=== PATIENT | female | born 1935 ===

== ENCOUNTER 2020-11-29 18:00 | Inpatient (IN) | payer MEDICARE ==
[~2020-11-29] VITALS: Ht 162.6 cm; Wt 48.1 kg
[2020-11-29] MEDS ORDERED: ESCI10TA PO (18:27)
--- NOTE | 2020-11-29 19:19 | NUR ---
MEDICALLY CLEARED BY ERMD. CALLED UNIQUE BAILON FROM PET TEAM TO EVAL PATIENT.
--- NOTE | 2020-11-29 20:30 | NUR ---
[place] from PET TEAM here to eval patient.
--- NOTE | 2020-11-29 22:28 | NUR ---
Transfered to [facility] via [facility].
[2020-11-29] MEDS ORDERED: MAGNESIUM HYDROXIDE 30 ML LIQUID UDC PO PRN (22:30)
[2020-11-29] MEDS ORDERED: MAG HYDROX/AL HYDROX/SIMETH 30 ML LIQUID UDC PO PRN (22:30)
[2020-11-29] MEDS ORDERED: LORAZEPAM 1 MG TABLET PO PRN (22:30)
[2020-11-29] MEDS ORDERED: ACETAMINOPHEN 325 MG TABLET PO PRN (22:30)
[2020-11-29 22:50] VITALS: BP 159/69
--- NOTE | 2020-11-29 22:55 | NUR ---
GPS ADMISSION NOTE : Patient is a 84 year old female brought into [facility] on a 5150 for DTS, Per the hold, the patient lives in a memory care center and has been expressing thought of SI to the staff. Also feeling hopeless and helpless. Upon face to face evaluation, this patient arrived on a gurney, incontinent of urine and very disoriented. When patient was asked why she was here, the patient responded " I do not have any idea ". Despite this writers multiple attempts to reorient this patient to the environment and unit rules, the patient was not able to retain the information. VS were stable and a Patients Rights handbook along with the Patient Advisement were given to the patient. Patient has no recollection of being SI. Continuing to monitor patient for safety, and to reorient whenever possible.
[2020-11-30] MEDS: TEMAZEPAM 7.5 MG CAPSULE PO PRN (01:20)
--- NOTE | 2020-11-30 06:02 | NUR ---
Patient was put into bed and got up x3 , constant reassurance and reorientation provided. This sign writer hand had patient in the sukhdeep chair, gave her some snack and a sleeping medication. Eventually, the patient fell asleep after put back to bed. The bed alarm is on and activated. Bed is locked and in the lowest position. Total sleep hours are 3.45 at this time. Patient was help to the toilet , but was incontinent. Continues to deny SI, and is confused about the whole situation stating that this is " A strange house."
[2020-11-30 07:30] VITALS: BP 113/53
--- NOTE | 2020-11-30 08:31 | NUR ---
Firearms Report: Environmental Maintenance Worker completed and submitted a [employer] firearms report for 5150 grave disability certification. A copy of report has been placed in patient chart.
--- NOTE | 2020-11-30 09:20 | NUR ---
TG Initial Discharge Plan: Patient andersy resides at [facility] located at [address] [place] [id number] ([phone]). This SW contacted patient's granddaughter Elizabeth ([phone]) and discussed treatment and discharge plan. Elizabeth stated she is the DPOA and pt's son Rodri ([phone]) and will fax this SW documents. Elizabeth stated she would want pt to return back to her memory care unit upon dc. TG will work with the MD and treatment team to coordinate proper discharge.
--- NOTE | 2020-11-30 09:21 | NUR ---
SW Family Contact: This SW contacted patient's granddaughter Elizabeth ([phone]) and discussed treatment and discharge plan. Elizabeth stated she is the DPOA and pt's son Rodri ([phone]) and will fax this SW documents. Elizabeth stated she would want pt to return back to her memory care unit upon dc
--- NOTE | 2020-11-30 09:21 | NUR ---
Treatment Plan: Pt appeared to be very confused and disorganized. Pt refused to sign.
--- NOTE | 2020-11-30 09:23 | NUR ---
[facility]: This SW contacted [facility] ([phone]) and requested to speak to admin to discuss discharge plan. Mansoor telephone operator receptionist stated admin will contact this SW.
--- NOTE | 2020-11-30 12:53 | NUR ---
[facility]: This SW contacted [facility] ([phone]) and spoke with admin Leyda (Cellphone: [phone]) who stated pt is welcomed back upon dc and will want a note stating pt is not SI.
[2020-11-30 15:13] VITALS: BP 105/71
[2020-11-30 15:46] LABS: *BILIRUBIN,URIN 1+ (NEGATIVE); *BLOOD, URINE 3+ (NEGATIVE); *CLARITY,URINE CLOUDY (CLEAR); *COLOR,URINE Brown (YELLOW); *KETONES,URINE 1+ (NEGATIVE); LEUKOCYTE ESTERASE ,URINE TRACE (NEGATIVE); NITRITE, URINE POSITIVE (NEGATIVE); UGLUCOSE TRACE (NEGATIVE)
[2020-11-30 20:31] VITALS: BP 139/80
[2020-11-30] MEDS: MIRTAZAPINE 15 MG TABLET PO SCH (20:47)
--- NOTE | 2020-11-30 22:00 | NUR ---
RECEIVED PATIENT IN THE HALLWAY SITTING IN A CURT CHAIR CLOSE TO THE NURSING STATION, SHE IS NOTED AWAKE, A/O X 1. MOOD IS IRRITABLE, AFFECT IS FLAT, PATIENT NOTED CONFUSED, DISORGANIZED SPEECH, GUARDED, AGGRESSIVE TOWARD STAFF AND SUSPICIOUS WITH DELUSION OF PERSECUTION. UPON INTERVIEW, SHE STATED TO THIS HEATING AND COOLING SYSTEMS ENGINEER, "WHY YOU KEEP ME HERE? ARE YOU GOING TO KILL ME? ARE YOU GIVING ME POISON? WHAT DID A DO TO YOU?" PATIENT REQUIRED MULTIPLE REDIRECTION, REALITY CHECKS AND REASSURANCE SHE IS NOTED FORGETFUL. NOTED RELUCTANT TO TAKE MEDICATION; HOWEVER, AFTER MULTIPLE REASSURANCES, SHE TOOK REMERON 7.5 MG QHS PER BARRY IVERSON.
[2020-11-30 22:10] LABS: RBC,URINE TNTC /HPF (0-3); WBC,URINE TNTC /HPF (0-3)
[2020-11-30 22:11] LABS: BACTERIA,URINE MANY /HPF (NONE SEEN); SQUAMOUS EPITHELIAL CELL,UR MODERATE /HPF (NONE SEEN)
--- NOTE | 2020-12-01 07:30 | NUR ---
Received report from KLAUDAI Siddiqi. All questions, comments, and concerns were addressed. Received patient asleep in her assigned bed. bed is in low and locked position with bed alarm on.
[2020-12-01 07:39] LABS: MEAN CORPUSCULAR VOLUME 103.8 fL (75.5-95.3); PLATELET COUNT (AUTO) 252 K/uL (179-408)
[2020-12-01 07:50] VITALS: BP 157/74
[2020-12-01 08:07] LABS: THYROID STIMULATING HORMONE 9.115 mIU/mL (0.358-3.740)
[2020-12-01 08:26] LABS: BILIRUBIN,TOTAL 0.2 mg/dL (0.2-1.0); CREATININE 0.8 mg/dL (0.6-1.3); MAGNESIUM 2.1 mg/dL (1.8-2.4); PHOSPHOROUS 2.9 mg/dL (2.5-4.9); POTASSIUM 3.2 mmol/L (3.5-5.1)
[2020-12-01] MEDS ORDERED: POTASSIUM CHLORIDE 20 MEQ TAB.PRT.SR PO ONE ×2 (12:00→20:15)
[2020-12-01 16:25] VITALS: BP 148/75
--- NOTE | 2020-12-01 20:00 | NUR ---
RECEIVED PATIENT IN HER ROOM IN BED. SHE IS NOTED SLEEPING BUT EASILY AROUSABLE. SHE IS NOTED A/O X 1. UNABLE TO HAVE A MEANINGFUL CONVERSION. PATIENT IS REASSURED FOR HER SAFETY. SAFETY AND FALL PRECAUTION IN PLACE. PATIENT WAS OFFERED PO FLUIDS AND SNACKS. V/S STABLE. WILL CONTINUE TO MONITOR.
--- NOTE | 2020-12-01 21:00 | NUR ---
PATIENT WAS ABLE TO TAKE KDUR 40mEq. she had refused it earlier. Pt was also seen by Dr Hall. Will continue to monitor
[2020-12-01] MEDS: MIRTAZAPINE 15 MG TABLET PO SCH (21:03)
[2020-12-01 21:17] VITALS: BP 152/78
[2020-12-01] MEDS: CEphaleXIN 500 MG CAPSULE PO SCH (23:13)
[2020-12-02 07:30] VITALS: BP 124/77
[2020-12-02] MEDS: CEphaleXIN 500 MG CAPSULE PO SCH ×2 (08:48→20:05)
--- NOTE | 2020-12-02 10:14 | NUR ---
DPOA Documents: This SW received DPOA documents. Pt's granddaughter Elizabeth is DPOA.
[2020-12-02 16:00] VITALS: BP 112/58
[2020-12-02 20:00] VITALS: BP 92/60
[2020-12-02] MEDS: MIRTAZAPINE 15 MG TABLET PO SCH ×2 (20:04→20:05)
[2020-12-02] MEDS: TEMAZEPAM 7.5 MG CAPSULE PO PRN (21:08)
[2020-12-03 07:30] VITALS: BP 134/60
[2020-12-03] MEDS: CEphaleXIN 500 MG CAPSULE PO SCH ×2 (10:16→20:38)
[2020-12-03 16:58] VITALS: BP 127/70
[2020-12-03 20:14] VITALS: BP 110/69
[2020-12-03] MEDS: MIRTAZAPINE 15 MG TABLET PO SCH (20:38)
[2020-12-04 07:42] VITALS: BP 121/58
[2020-12-04] MEDS: CEphaleXIN 500 MG CAPSULE PO SCH ×2 (08:23→20:02)
[2020-12-04] MEDS: ENSURE ENLIVE (VAN) 240 ML LIQUID PO SCH ×3 (08:41→17:15)
[2020-12-04 16:02] VITALS: BP 122/71
[2020-12-04 19:55] VITALS: BP 112/64
[2020-12-04] MEDS: MIRTAZAPINE 15 MG TABLET PO SCH (20:02)
[2020-12-05 08:14] VITALS: BP 127/78
[2020-12-05] MEDS: ENSURE ENLIVE (VAN) 240 ML LIQUID PO SCH ×3 (08:33→17:07)
[2020-12-05] MEDS: CEphaleXIN 500 MG CAPSULE PO SCH ×3 (08:36→21:05)
[2020-12-05 08:39] LABS: HEMATOCRIT 35.5 % (31.2-41.9); MEAN CORPUSCULAR HEMOGLOBIN 34.7 uug (24.7-32.8); MEAN CORPUSCULAR VOLUME 103.6 fL (75.5-95.3); PLATELET COUNT (AUTO) 281 K/uL (179-408)
[2020-12-05 08:48] LABS: BILIRUBIN,TOTAL 0.2 mg/dL (0.2-1.0); CREATININE 0.8 mg/dL (0.6-1.3); POTASSIUM 3.9 mmol/L (3.5-5.1); TOTAL PROTEIN, SERUM 6.3 g/dL (6.4-8.2)
--- NOTE | 2020-12-05 12:59 | NUR ---
Pt.was seen by JUANY DELANEY MD
[2020-12-05 16:45] VITALS: BP 104/73
--- NOTE | 2020-12-05 17:51 | NUR ---
PT. EATING DINNER.NO S/S OF DISTRESS,DENIES ANY PAIN
[2020-12-05 19:59] VITALS: BP 101/61
[2020-12-05] MEDS: MIRTAZAPINE 15 MG TABLET PO SCH ×2 (21:00→21:05)
[2020-12-06 07:30] VITALS: BP 146/50
[2020-12-06] MEDS: CEphaleXIN 500 MG CAPSULE PO SCH ×2 (08:39→20:16)
[2020-12-06] MEDS: ENSURE ENLIVE (VAN) 240 ML LIQUID PO SCH ×3 (08:40→17:21)
--- NOTE | 2020-12-06 10:44 | NUR ---
Court Hearing: Patient's court hearing for 5250 was today and it was upheld for danger to self.
[2020-12-06 15:26] VITALS: BP 141/63
[2020-12-06 20:05] VITALS: BP 103/63
[2020-12-06] MEDS: MIRTAZAPINE 15 MG TABLET PO SCH (20:16)
[2020-12-07 07:30] VITALS: BP 141/82
[2020-12-07] MEDS: CEphaleXIN 500 MG CAPSULE PO SCH ×2 (08:27→20:50)
[2020-12-07] MEDS: ENSURE ENLIVE (VAN) 240 ML LIQUID PO SCH ×3 (08:28→17:04)
--- NOTE | 2020-12-07 09:56 | NUR ---
[facility]: This SW contacted [facility] Admin Inge (Cellphone: [phone]) and left a voicemail to get fax number to send updated clinicals.
--- NOTE | 2020-12-07 13:26 | NUR ---
[facility]: This SW spoke with [facility] Admin Tari (Cellphone: [phone]) and faxed her patient's updated clinicals ( ) and discussed possible discharge end of the week. Tari is agreeable with this plan.
[2020-12-07 15:32] VITALS: BP 111/69
[2020-12-07 20:14] VITALS: BP 124/75
[2020-12-07] MEDS: MIRTAZAPINE 15 MG TABLET PO SCH (20:50)
--- NOTE | 2020-12-07 23:25 | NUR ---
PATIENT A/O X1,CONFUSED AMD DISORIENTED. PATIENT COMPLAINT WITH MEDICATION. PATIENT DENIES PAIN/SI/HI.PATIENT ON HIGH FALL RISK PRECAUTION DUE TO UNSTEADY ON HER FEET.TOTAL CARE RENDERED.POOR INSIGHT AND IMPAIRED JUDGEMENT.FREQUENT REALITY ORIENTATION WITH,REDIRECTION NEEDED.IN NO ACUTE DISTRESS NOTED. SAFE ENVIRONMENT PROVIDED, FREQUENT ROUNDING, BED IN LOWEST POSITION, BED LOCKED, AND BED ALARM ON WHILE IN BED.
[2020-12-08 07:30] VITALS: BP 101/60
[2020-12-08] MEDS: ENSURE ENLIVE (VAN) 240 ML LIQUID PO SCH ×3 (08:12→16:35)
--- NOTE | 2020-12-08 10:34 | NUR ---
[facility]: This SW spoke with [facility] Admin Tari (Cellphone: [phone]) and faxed her patient's updated clinicals ( ).
--- NOTE | 2020-12-08 11:00 | NUR ---
noted patient's right foot swollen and redness , picture taken wound care consult ordered.
--- NOTE | 2020-12-08 13:00 | NUR ---
DPM here to check patient right foot ,senal excisional debridement done.wound care done to right foot.
--- NOTE | 2020-12-08 13:23 | NUR ---
TG Individual Therapy: ornamental ironworker helper met with patient for brief counseling and assessed for patient's presenting problem suicidal ideation. Pt presented with flat affect. Pt appeared to be very confused and was unable to have a conversation at this time.
[2020-12-08 16:00] VITALS: BP 121/80
[2020-12-08 20:18] VITALS: BP 126/78
[2020-12-08] MEDS: MIRTAZAPINE 15 MG TABLET PO SCH (20:20)
[2020-12-08] MEDS ORDERED: CEphaleXIN 500 MG CAPSULE PO SCH (21:00)
[2020-12-08] MEDS: CEphaleXIN 250 MG CAPSULE PO SCH (23:23)
[2020-12-09] MEDS: CEphaleXIN 250 MG CAPSULE PO SCH ×3 (06:14→18:00)
[2020-12-09 07:30] VITALS: BP 146/70
[2020-12-09] MEDS: ENSURE ENLIVE (VAN) 240 ML LIQUID PO SCH ×3 (09:00→17:08)
--- NOTE | 2020-12-09 13:30 | NUR ---
Gps/Stabilizer Operator- Button Buttonhole Marker was in checked right foot wound, was redressed, site cleansed with NS pat dry, punctured site packed with about 1 inch of ggauze as ordered, covered with adaptive, 2x2 dressing and boarder dressings. Less redness. noted. Patient remains up in her chair, quiet, lower ext. elevated, able to take her pm meds. , no pain noted.
[2020-12-09 15:59] VITALS: BP 104/48
[2020-12-09 20:00] VITALS: BP 118/66
[2020-12-09] MEDS: MIRTAZAPINE 15 MG TABLET PO SCH (20:48)
[2020-12-10] MEDS: CEphaleXIN 250 MG CAPSULE PO SCH ×2 (01:07→06:16)
[2020-12-10 07:30] VITALS: BP 131/54
--- NOTE | 2020-12-10 08:01 | NUR ---
DISCHARGE NOTE: Patient will return back to [facility] located at [address] [place] [address] ([phone]). Patients granddaughter/DPOA Elizabeth ([phone]) is aware and agreeable with discharge plan and will be picking up the patient at 10AM today and taking her back to [facility]. Admin Deddie (cellphone: [phone]) is aware and agreeable and will accept pt today. Patient appears to be alert and oriented x2. Patient denies suicidal or homicidal ideation. Patient denies visual and auditory hallucinations. Patient will follow up with primary doctor Dr. Dominguez (#[phone]) at the memory care unit and will provide the psychotropic medications. Patient presents with euthymic mood and congruent affect.
[2020-12-10] MEDS: ENSURE ENLIVE (VAN) 240 ML LIQUID PO SCH (08:34)
--- NOTE | 2020-12-10 10:15 | NUR ---
Gps/Lab Systems Analyst- Granddaughter in to pickle maker patient , will be discharged back to Memory Care Center. Granddaughter to provide transportation. All belongings given back to patient, Left the MHU via private car, in no sign of any distress, no hallucinations, no S.I. No complaints noted. All belongings given back to patient, with eye glasses, black pants, black sweated, red blouse a a pair of socks.
--- NOTE | 2020-12-10 15:00 | NUR ---
Gps/Cnp Tari from [facility], called , requesting a prescriptions for Keflex 250 mg po , Sacha Dowd SHEET CUTTER was called informed, needed to fax Rx to [facility] as requested by Tari (facility admnistrator ) , fax # ([facility])
== END 2020-12-10 10:30 | DRG 876 ==
LOC: ER 18:09 → GPS 22:20
PROVIDERS: ADMIT Psychiatry & Neurology Psychiatry; ATTEND Internal Medicine
PROC: 0JBQ0ZZ Excision of Right Foot Subcutaneous Tissue and Fascia, Open Approach (ICD-10-PCS; principal; 2020-12-08)
DX: F32.9 Major depressive disorder, single episode, unspecified (principal); E43 Unspecified severe protein-calorie malnutrition; R45.851 Suicidal ideations; N39.0 Urinary tract infection, site not specified; L03.115 Cellulitis of right lower limb; E87.6 Hypokalemia; B96.20 Unspecified Escherichia coli [E. coli] as the cause of diseases classified elsewhere; F03.90 Unspecified dementia, unspecified severity, without behavioral disturbance, psychotic disturbance, mood disturbance, and anxiety; D75.89 Other specified diseases of blood and blood-forming organs; E03.9 Hypothyroidism, unspecified; E53.8 Deficiency of other specified B group vitamins; S90.31XA Contusion of right foot, initial encounter; X58.XXXA Exposure to other specified factors, initial encounter; Y93.9 Activity, unspecified; Y92.9 Unspecified place or not applicable; M20.41 Other hammer toe(s) (acquired), right foot; M20.42 Other hammer toe(s) (acquired), left foot; R62.7 Adult failure to thrive; Z20.822 Contact with and (suspected) exposure to COVID-19; Z79.899 Other long term (current) drug therapy; B96.89 Other specified bacterial agents as the cause of diseases classified elsewhere
CPT/HCPCS: 36415; 71045; 73620; 83735; 84100; 84443; 85025; 87077; 87086; 93005; 97161; A4663